=== PATIENT | male | born 1980 | race Caucasian/White ===

== ENCOUNTER 2021-04-18 06:41 | Emergency (ER) | payer OTHER ==
[2021-04-18] MEDS ORDERED: Colchicine 0.6 MG Tab PO ONE (07:32)
--- NOTE | 2021-04-18 07:37 | EDM.PDOC ---
ED HPI GENERAL MEDICAL PROBLEM - General Chief Complaint: Lower Extremity Injury/Pain Stated Complaint: LT ANKLE PAIN Time Seen by Provider: 04/18/21 07:26 Source of Information: Reports: Patient, RN Notes Reviewed History Limitations: Reports: No Limitations - History of Present Illness INITIAL COMMENTS - FREE TEXT/NARRATIVE: 41-year-old gentleman presents emergency department today with complaint of left ankle pain he does have a history of gout he states this feels very much like gout just started last night he does have some swelling there usually gets it in his toe however it has advanced. He has no breaks in the skin he has not had any fevers no redness around the ankle no trauma Left Ankle Pain Score (Numeric/FACES): 8 - Related Data Allergies Allergy/AdvReac Type Severity Reaction Status Date / Time No Known Allergies Allergy Verified 04/18/21 07:18 Home Meds: Home Meds Divalproex Sodium [Depakote ER] 1,000 mg PO BEDTIME 04/18/21 [History] Divalproex Sodium [Depakote ER] 500 mg PO DAILY 04/18/21 [History] Past Medical History HEENT History: Reports: Impaired Vision Musculoskeletal History: Reports: Gout Neurological History: Reports: Seizure Social & Family History - Tobacco Use Tobacco Use Status *Q: Never Tobacco User Second Hand Smoke Exposure: No - Caffeine Use Caffeine Use: Reports: None - Recreational Drug Use Recreational Drug Use: No Review of Systems - Review of Systems Review Of Systems: See Below Musculoskeletal: Reports: Joint Pain ED EXAM, GENERAL - Physical Exam Exam: See Below Free Text/Narrative:: Examination of the ankle I do not appreciate any erythema there is some edema a round the lateral malleolus slight tenderness to palpation around the ankle joint itself it is not warm to the touch Exam Limited By: No Limitations General Appearance: Alert, WD/WN, No Apparent Distress Course - Vital Signs Last Recorded V/S: Last Vital Signs Temp 98.1 F 04/18/21 07:19 Pulse 89 04/18/21 07:19 Resp 16 04/18/21 07:19 BP 131/81 04/18/21 07:19 Pulse Ox 98 04/18/21 07:19 - Orders/Labs/Meds Orders: Active Orders 24 hr Category Date Time Status Colchicine [Colcrys] Med 04/18/21 07:45 Ordered 0.6 mg PO Q1H Colchicine [Colcrys] Med 04/18/21 07:32 Once 1.2 mg PO ONETIME ONE Medication Orders Colchicine (Colchicine 0.6 Mg Tab) 0.6 mg PO Q1H [facility] Meds: Medications Generic Name Dose Route Start Last Admin Trade Name Yung PRN Reason Stop Dose Admin Colchicine 0.6 mg 04/18/21 07:45 Colchicine 0.6 Mg Tab PO Q1H [facility] Departure - Departure Time of Disposition: 07:36 Disposition: Home, Self-Care 01 Condition: Fair Clinical Impression: Gout attack Qualifiers: Gout site: ankle Gout etiology: unspecified cause Laterality: left Qualified Code(s): M10.9 - Gout, unspecified - Discharge Information Instructions: Gout, [id number] Referrals: PCP,None [Primary Care Provider] - Additional Instructions: Take the colchicine and 1 hour after your initial dose of colchicine, continue to use ibuprofen as needed for pain control follow-up with your primary care 2 to 3 days if not better, call return to the emergency department worsening of symptoms Sepsis Event Note (ED) - Evaluation Sepsis Screening Result: No Definite Risk - Focused Exam Vital Signs: Vital Signs Temp Pulse Resp BP Pulse Ox 04/18/21 07:19 98.1 F 89 16 131/81 98 - My Orders Last 24 Hours: My Active Orders 04/18/21 07:32 Colchicine [Colcrys] 1.2 mg PO ONETIME ONE 04/18/21 07:45 Colchicine [Colcrys] 0.6 mg PO Q1H - Assessment/Plan Last 24 Hours: My Active Orders 04/18/21 07:32 Colchicine [Colcrys] 1.2 mg PO ONETIME ONE 04/18/21 07:45 Colchicine [Colcrys] 0.6 mg PO Q1H Plan: Assessment Acuity = acute Site and laterality = gout left ankle Etiology = unknown Manifestations = none Location of injury = Home Lab values = none Plan Treat with the colchicine 1.2 mg now followed by 0.6 mg in 1 hour follow-up primary care 2 to 3 days if not better continue to use ibuprofen as needed This note was dictated using [employer] voice recognition software please call with any questions on syntax or grammar.
[2021-04-18] MEDS ORDERED: Colchicine 0.6 MG Tab PO SCH (07:45)
== END 2021-04-18 07:51 | disposition home or self-care (01) ==
LOC: JP.ED 06:41
DX: M10.9 Gout, unspecified (principal); R60.0 Localized edema
CPT/HCPCS: 99283; A9270